=== PATIENT | female | born 1995 | race Caucasian/White ===

== ENCOUNTER → 2019-07-04 13:50 | Observation (INO) ==
[2019-07-04 09:34] LABS: Amphetamine Screen,Urine Negative ng/mL (Cutoff=1000); Barbiturate Screen,Urine Negative ng/mL (Cutoff=200); Benzodiazepines Screen,Urine Negative ng/mL (Cutoff=200); Cannabinoid Screen,Urine Negative ng/mL (Cutoff = 50); Cocaine Screen,Urine Negative ng/mL (Cutoff= 300); Opiate Screen,Urine Negative ng/mL (Cutoff=300); Phencyclidine Screen,Urine Negative ng/mL (Cutoff=25)
== END | disposition home or self-care (01) ==
LOC: 1NENULAB
PROVIDERS: ADMIT Registered Nurse; ATTEND Registered Nurse

== ENCOUNTER 2019-07-05 05:58 | Inpatient (IN) ==
[2019-07-05 02:52] LABS: Amphetamine Screen,Urine Negative ng/mL (Cutoff=1000); Barbiturate Screen,Urine Negative ng/mL (Cutoff=200); Benzodiazepines Screen,Urine Negative ng/mL (Cutoff=200); Cannabinoid Screen,Urine Negative ng/mL (Cutoff = 50); Cocaine Screen,Urine Negative ng/mL (Cutoff= 300); Opiate Screen,Urine Negative ng/mL (Cutoff=300); Phencyclidine Screen,Urine Negative ng/mL (Cutoff=25)
[~2019-07-05 05:58] MED LIST: FLU Vac QV 19-20 (6Month+)/PF 0.5 ML SYRINGE IM ONE; Famotidine 20 MG/2 ML VIAL IVP PRN; Metoclopramide 10 MG/2 ML VIAL IVP PRN
[2019-07-05] MEDS ORDERED: *HR* Nalbuphine 10 MG/ML AMPUL IV PRN (06:02)
[2019-07-05] MEDS ORDERED: Ringers Solution, Lactated 1,000 ML ONE (06:04)
[2019-07-05] MEDS ORDERED: Ringers Solution, Lactated 1,000 ML IVC SCH (06:15)
[2019-07-05 06:31] LABS: Basophils % 0.2 %; Eosinophils # 0.1 K/mcL (0.0-0.6); Eosinophils % 0.9 %; Hematocrit 39.2 % (35.3-44.9); Hemoglobin 13.4 g/dL (11.5-15.4); Immature Granulocytes % 0.3 % (0-4); Lymphocytes # 2.4 K/mcL (0.6-4.6); Lymphocytes % 19.8 %; Mean Corpuscular HGB Conc 34.2 g/dL (31.6-35.5); Mean Corpuscular Hemoglobin 31.1 pg (28.0-33.3); Mean Platelet Volume 13.1 fL (9.4-12.4); Monocytes # 0.8 K/mcL (0.0-1.3); Monocytes % 6.7 %; Neutrophils # 8.6 K/mcL (1.6-8.9); Platelet Count 177 K/mcL (140-400); Red Blood Count 4.31 M/mcL (3.82-4.97); Red Cell Distribution Width 12.5 % (11.5-14.5); Segmented Neutrophils % 72.1 %; White Blood Count 11.9 K/mcL (4.3-11.1)
[2019-07-05] MEDS ORDERED: *HR* FentaNYL (PF) 100 MCG/2 ML VIAL ONE (06:44)
[2019-07-05] MEDS ORDERED: Bupivacaine-MPF 0.25% 10 ML VIAL ONE (06:44)
[2019-07-05] MEDS ORDERED: Epidural Premix (fent/bupiv) 110 ML EP SCH (06:45)
[2019-07-05] MEDS ORDERED: Oxytocin 20 units/ LR 1000 mL 20 UNIT/1,000 ML BAG IVC ONE ×2 (07:07→08:43)
[2019-07-05] MEDS ORDERED: Acetaminophen 325 MG TABLET PO PRN (10:06)
[2019-07-05] MEDS ORDERED: Prenatal Vit/FA 1 EACH TABLET PO SCH (10:06)
[2019-07-05] MEDS ORDERED: Rho Immune Globulin 1,500 UNIT SYRINGE IM PRN (10:06)
[2019-07-05] MEDS ORDERED: Oxytocin 20 units/ LR 1000 mL 20 UNIT/1,000 ML BAG IVC SCH (10:06)
[2019-07-05] MEDS: Ibuprofen 600 MG TABLET PO PRN (20:54)
[2019-07-06] MEDS: Ibuprofen 600 MG TABLET PO PRN ×2 (01:25→09:39)
[2019-07-06 08:07] VITALS: BP 118/74
== END 2019-07-06 13:43 | disposition home or self-care (01) | DRG 560 ==
LOC: 1NENULAB → 1NENUOBS 09:49
PROVIDERS: ADMIT Registered Nurse; ATTEND Registered Nurse

== ENCOUNTER 2020-08-12 17:53 | Inpatient (IN) ==
[2020-08-12] MEDS ORDERED: Metoclopramide 10 MG/2 ML VIAL IVP PRN (18:17)
[2020-08-12] MEDS ORDERED: Ondansetron 4 MG/2 ML VIAL IVP PRN (18:17)
[2020-08-12] MEDS ORDERED: Azithromycin 500 MG in 0.9 % Sodium Chloride 250 ML IVPB ONE (18:17)
[2020-08-12] MEDS ORDERED: Lidocaine 1% 20 ML MDV INFILT PRN (18:17)
[2020-08-12] MEDS ORDERED: *HR* FentaNYL (PF) 100 MCG/2 ML VIAL IVP PRN (18:17)
[2020-08-12] MEDS ORDERED: Famotidine 20 MG/2 ML VIAL IVP PRN (18:17)
[2020-08-12] MEDS ORDERED: Naloxone 0.4 MG/ML INJ IVP PRN (18:17)
[2020-08-12] MEDS ORDERED: Ringers Solution, Lactated 1,000 ML IVC SCH (18:30)
[2020-08-12 19:50] LABS: Basophils % 0.4 %; Eosinophils # 0.2 K/mcL (0.0-0.6); Eosinophils % 2.4 %; Hematocrit 36.3 % (35.3-44.9); Immature Granulocytes % 0.3 % (0-4); Lymphocytes # 2.2 K/mcL (0.6-4.6); Lymphocytes % 23.4 %; Mean Corpuscular HGB Conc 33.1 g/dL (31.6-35.5); Mean Corpuscular Hemoglobin 29.8 pg (28.0-33.3); Mean Corpuscular Volume 90.1 fL (83.0-100.0); Mean Platelet Volume 11.8 fL (9.4-12.4); Monocytes # 0.6 K/mcL (0.0-1.3); Monocytes % 6.4 %; Neutrophils # 6.3 K/mcL (1.6-8.9); Platelet Count 241 K/mcL (140-400); Red Blood Count 4.03 M/mcL (3.82-4.97); Red Cell Distribution Width 12.2 % (11.5-14.5); Segmented Neutrophils % 67.1 %; White Blood Count 9.4 K/mcL (4.3-11.1)
[2020-08-12] MEDS ORDERED: Oxytocin 20 units/ LR 1000 mL 20 UNIT/1,000 ML BAG IVC ONE (19:56)
[2020-08-12 20:00] LABS: Amphetamine Screen,Urine Negative ng/mL (Cutoff=1000); Barbiturate Screen,Urine Negative ng/mL (Cutoff=200); Benzodiazepines Screen,Urine Negative ng/mL (Cutoff=200); Cannabinoid Screen,Urine Negative ng/mL (Cutoff = 50); Cocaine Screen,Urine Negative ng/mL (Cutoff= 300); Opiate Screen,Urine Negative ng/mL (Cutoff=300); Phencyclidine Screen,Urine Negative ng/mL (Cutoff=25)
[2020-08-12] MEDS ORDERED: Oxytocin 20 units/ LR 1000 mL 20 UNIT/1,000 ML BAG IVC SCH ×2 (20:00→23:24)
[2020-08-12] MEDS ORDERED: Ibuprofen 600 MG TABLET PO ONE (22:20)
[2020-08-12] MEDS ORDERED: Nicotine 21 MG PATCH.TD24 TD SCH ×2 (23:15→23:30)
[2020-08-12] MEDS ORDERED: Benzocaine/Menthol 56 GM AEROSOL SPRAY TP PRN (23:24)
[2020-08-12] MEDS ORDERED: Lanolin 7 G OINT...G. TP PRN (23:24)
[2020-08-12] MEDS ORDERED: Acetaminophen 325 MG TABLET PO PRN (23:24)
[2020-08-13] MEDS ORDERED: Hydrocortisone Acetate 25 MG RECTAL SUPPOSITORY RC PRN (00:06)
[2020-08-13 07:54] VITALS: BP 114/65
[2020-08-13] MEDS ORDERED: Prenatal Vit/FA 1 EACH TABLET PO SCH (09:00)
[2020-08-13] MEDS: Ibuprofen 600 MG TABLET PO PRN ×2 (09:04→14:47)
== END 2020-08-13 23:20 | disposition home or self-care (01) | DRG 560 ==
LOC: 1NENULAB 17:53 → 1NENUOBS 08-13 00:41
PROVIDERS: ADMIT Registered Nurse; ATTEND Registered Nurse